=== PATIENT | female | born 1990 | race Caucasian/White ===

== ENCOUNTER 2019-04-08 08:37 | Emergency (ER) | payer MEDICAID ==
[~2019-04-08] VITALS: Ht 149.9 cm; Wt 55.0 kg
[2019-04-08] MEDS ORDERED: ACETAMINOPHEN 500MG TABLET PO ONE (10:00)
[2019-04-08 11:47] VITALS: BP 133/93
== END 2019-04-08 11:47 | disposition home or self-care (01) ==
LOC: ER 08:37
DX: N61.0 Mastitis without abscess (principal)
CPT/HCPCS: 76641; 99284